=== PATIENT | male | born 1995 | race Caucasian/White ===

== ENCOUNTER 2018-03-15 13:03 | Emergency (ER) | payer SELFPAY ==
[~2018-03-15] VITALS: Ht 167.6 cm; Wt 74.8 kg
[2018-03-15] MEDS ORDERED: CLINDAMYCIN PHOS 600 MG/ 4 ML VIAL IM ONE (13:45)
[2018-03-15] MEDS ORDERED: HYDROCODONE/APAP 10MG-325MG TAB PO ONE (13:45)
[2018-03-15 14:34] VITALS: BP 129/69
== END 2018-03-15 14:37 | disposition home or self-care (01) ==
LOC: ER 13:03
DX: L02.415 Cutaneous abscess of right lower limb (principal)
CPT/HCPCS: 99283